=== PATIENT | female | born 1975 | race Caucasian/White ===

== ENCOUNTER → 2016-06-30 | Outpatient (CLI) | payer OTHER ==
--- NOTE | 2016-06-30 11:34 | US ---
Pelvic Sonogram (With Transvaginal) Clinical Indications: Left lower quadrant incisional scar pain. Technique: Transabdominal and endovaginal exams. Transvaginal exam is added to better evaluate the uterus and ovaries. Findings: Uterus measures 4.4 x 6.7 x 11.5 cm. There is trace free fluid on the right. Endometrial s tripe is normal at 1 cm. The right ovary measures 4.4 x 2.4 x 2.3 cm with normal flow and resistive index of 0.6. Left ovary measures 3.5 x 1.8 x 2.3 cm with normal flow and resistive index of 0.61. Impression: Normal pelvic ultrasound. Please see separate report for evaluation of the sca r.
--- NOTE | 2016-06-30 11:37 | US ---
Ultrasound abdomen limited - June 30, 2016 Clinical indication: Cyclical pain along the scar corresponding to the patient's menstrual cycle. Technique: Grayscale, cine and color imaging of the scar was performed. Provocative maneuve rs were performed to evaluate for a hernia. Findings: Within the scar, there is a 2.2 x 1.1 x 2.0 cm vascular nodule, which is slightl y ill defined. There is no evidence of a hernia. The remainder of the examination is unremarkable. Impression: Nodular mass within the scar. Given the history of cyclical pain corresponding with the patient's menstrual cycle, this likely represents an endometrioma in the scar. Less likely a desmoid tumor could be the other differential possibility. Critical results relayed by Dr. Jordi Hanks to Dr. Maryam Riley on June 30, 2016 at 11:10 a.m.
== END ==
LOC: FIMAGING 09:33
PROVIDERS: ATTEND Physician Assistant Medical
DX: R22.2 Localized swelling, mass and lump, trunk (principal)

== ENCOUNTER 2016-10-28 06:26 | Day surgery (SDC) | payer OTHER ==
[2016-10-28] MEDS ORDERED: ONDANSETRON 4 MG/2 ML VIAL ONE ×2 (07:41→10:30)
[2016-10-28] MEDS ORDERED: KETOROLAC 30 MG/1 ML SDV ONE (07:41)
[2016-10-28] MEDS ORDERED: DEXAMETHASONE 4 MG/ML VIAL ONE (07:41)
[2016-10-28] MEDS ORDERED: LIDOCAINE 2% 5 ML SDV ONE (07:42)
[2016-10-28] MEDS ORDERED: PROPOFOL 200 MG/20 ML VIAL ONE (07:42)
[2016-10-28] MEDS ORDERED: fentaNYL 100 MCG/2 ML INJ ONE ×2 (07:42→09:20)
[2016-10-28] MEDS ORDERED: MIDAZOLAM 2 MG/2 ML VIAL ONE (07:58)
[2016-10-28] MEDS ORDERED: BUPIVACAINE 0.5% 30 ML SDV ONE (08:14)
[2016-10-28] MEDS ORDERED: HYDROmorphONE/DILAUDID 2 MG/ML INJ ONE (09:20)
[2016-10-28] MEDS ORDERED: traMADol 50 MG TAB PO PRN (09:48)
[2016-10-28] MEDS ORDERED: traMADol 50 MG TAB ONE (10:30)
--- NOTE | 2016-10-28 14:31 | GOP ---
[f rep st] OPERATIVE REPORT DATE OF OPERATION: SURGEON: Melissa Moreno MD ANESTHESIA: Tra Carbajal MD. General with LMA. PREOPERATIVE DIAGNOSIS: 1. Cyclical incisional pain. 2. Likely abdominal wall endometrioma. POSTOPERATIVE DIAGNOSIS: 1. Cyclical incisional pain. 2. Likely abdominal wall endometrioma. PROCEDURE PERFORMED: Excision of abdominal wall endometrioma. FINDINGS: In the midline of the scar is a nodular area that it is part of the fascia and extends into the rectus muscle. It is likely about a centimeter across to 2 cm. Otherwise, no abdo adam wall finding. ESTIMATED BLOOD LOSS: Minimal. INDICATIONS: Patient is a 41-year-old, , who has a significant history of a stroke associated with patent foramen ovale, which has been repaired, and she is on long-term aspirin. She has receiv ed medical clearance by her PCP, who is her referring doctor, Dr. Aron Huggins. Patient has had 2 C sections and recently has developed significant cyclic pain that starts in the mid section of her C -section scar, radiates to the left, and radiates to the superior aspect of the scar. She has been counseled on treatment options, including using Lupron therapy and surgical excision. She has also had a pelvic ultrasound that showed a 2 cm ill-defined mass in the scar, and she desires surgical excision for definitive treatment. She is aware that this can cause persistent sc arring and can cause hernia, and there is not a guarantee that it will treat her cyclic pain indefin itely. She wishes to proceed. DESCRIPTION OF PROCEDURE: With informed consent signed, patient was taken to the operating room and placed under general anesthesia. Placed in low dorsal lithotomy position and prepped and draped in usual sterile fashion. Bladder emptied previously. Pre incision area was injected with 10 cc of 0 .5% Marcaine for postop pain control, and then scalpel used to make a small incision in the midline of the scar where the nodule is palpable. This is carried down to the fascia where the no dule was more obvious; however, there was no discoloration or darkness associated with endometriosis . The nodular area was excised out with sharp Metzenbaum's and the scalpel, and this was handed off for specimen. The residual area that might have been part of the endometriosis area was then caute rized to make sure that any residual endometriosis tissue was ablated. The fascia was closed with 2-0 Vicryl, the subcutaneous tissue was closed with 3-0 Vicryl, and then the skin was closed with a subcu stitch with 4-0 Vicryl. Patient was then awakened in the operating room and taken to the recovery room in stable condition, having tolerated the procedure well. Patient to follow up in 1 week for postop care. COMPLICATIONS: None. /[id number]/MODL
== END 2016-10-28 13:50 | disposition home or self-care (01) ==
LOC: FSGY 06:26
PROVIDERS: ATTEND Obstetrics & Gynecology Gynecology
PROC: 0WBF0ZZ Excision of Abdominal Wall, Open Approach (ICD-10-PCS; principal; 2016-10-28 08:00)
DX: N80.6 Endometriosis in cutaneous scar (principal)
CPT/HCPCS: J1100; J1170; J1885; J2250; J2405; J2704; J3010

== ENCOUNTER → 2016-12-31 | Outpatient (CLI) | payer OTHER | LOC: FIMAGING 13:35 | PROVIDERS: ATTEND Family Medicine | DX: E07.9 Disorder of thyroid, unspecified (principal) ==